=== PATIENT | female | born 1945 | race Caucasian/White ===

== ENCOUNTER 2016-07-24 12:00 | Inpatient (IN) | payer OTHER ==
[2016-08-14] MEDS ORDERED: BACITRACIN 50,000 UNITS/10 ML SYR IRR ONE (08:41)
[2016-08-14] MEDS ORDERED: BUPIVACAINE/EPI 0.25% 30 ML SDV ONE (08:41)
[2016-08-14] MEDS ORDERED: THROMBIN (BOVINE) 5,000 UNIT VIAL TP ONE (08:42)
[2016-08-14] MEDS ORDERED: LR 1,000 ML IV ONE (08:47)
[2016-08-14] MEDS ORDERED: LIDOCAINE 1% 5 ML SDV ID PRN (08:47)
[2016-08-14] MEDS ORDERED: LIDOCAINE 1% 2 ML INJ ONE (08:49)
[2016-08-14] MEDS ORDERED: ceFAZolin 2 GM/DEXTROSE 100 ML IV ONE (09:00)
[2016-08-14] MEDS ORDERED: MIDAZOLAM 2 MG/2 ML VIAL ONE (09:12)
[2016-08-14] MEDS ORDERED: SCOPOLAMINE HYDROBROMIDE 1.5 MG PATCH TD ONE ×2 (09:12→09:30)
[2016-08-14] MEDS ORDERED: PROPOFOL/EMULSION 500 MG/50 ML BOTTLE IV ONE ×2 (09:21→11:31)
[2016-08-14] MEDS ORDERED: fentaNYL 100 MCG/2 ML INJ ONE ×3 (09:21→15:07)
[2016-08-14] MEDS ORDERED: DEXAMETHASONE 4 MG/ML VIAL ONE ×2 (09:30)
[2016-08-14] MEDS ORDERED: ROCURONIUM 50 MG/5 ML VIAL ONE (09:30)
[2016-08-14] MEDS ORDERED: REMIFENTANIL HCL 1 MG VIAL ONE (09:30)
[2016-08-14] MEDS ORDERED: LIDOCAINE 2% 5 ML SDV ONE (09:30)
[2016-08-14] MEDS ORDERED: DEXMEDETOMIDINE HCL 400 MCG in NS 100 ML IV ONE (09:30)
[2016-08-14 09:35] LABS: APTT 22.6 SEC (23.0-38.0); INR 0.99 (0.83-1.16)
[2016-08-14] MEDS ORDERED: DIAZEPAM 10 MG/2 ML SYR IVP PRN (09:41)
[2016-08-14] MEDS ORDERED: BISACODYL 10 MG SUPP PR PRN (09:41)
[2016-08-14] MEDS ORDERED: MAGNESIUM HYDROXIDE 30 ML UDCUP PO PRN (09:41)
[2016-08-14] MEDS ORDERED: LACTULOSE 20 GM/30 ML UDCUP PO PRN (09:41)
[2016-08-14] MEDS ORDERED: diphenhydrAMINE 25 MG CAP PO PRN (09:41)
[2016-08-14] MEDS ORDERED: POLYETHYLENE GLYCOL 3350 17 GM PKT PO PRN (09:41)
[2016-08-14] MEDS ORDERED: ONDANSETRON 4 MG/2 ML VIAL ONE (12:25)
--- NOTE | 2016-08-14 13:31 | GOP ---
[f rep st] OPERATIVE REPORT DATE OF OPERATION: 08/14/2016 SURGEON: Luz Maria Simmons DO NEUROSURGEON: Luz Maria Simmons DO. EDUCATIONAL/DEVELOPMENT ASSISTANT: LLUVIA Wen PREOPERATIVE DIAGNOSIS: Lumbar spondylosis, lumbar stenosis, radiculopathy. POSTOPERATIVE DIAGNOSIS: Lumbar spondylosis, lumbar stenosis, radiculopathy. PROCEDURE PERFORMED: L5-S1 transforaminal lumbar interbody fusion, with Medtronic Solera 4.75 screw s and an 8 x 28 Elevate cage, autograft, allograft, BMP, Stealth stereotaxis. FINDINGS: SPECIMENS: None. ESTIMATED BLOOD LOSS: 100 mL. INDICATIONS: This is a 71-year-old female with severe stenosis, spondylosis, facet arthropathy with radiculopathy bilateral, right greater than left, with MRI consistent with L5-S1 spondylosis and st enosis. It should be noted that she has an S1-2 disk space, and this was noted as L5-S1 from the ra diology report in the 1st fully formed disk space. She was identified, consented, sites were marked . DESCRIPTION OF PROCEDURE: Brought to the operating room, anesthetized under general endotracheal tu be anesthesia, rolled onto the Kedar table. All pressure points were appropriately padded. Incis ion was marked using 18-gauge spinal needle and fluoro, after having prepped and draped in the usual sterile fashion. We opened with a 10 blade and hemostasis obtained with Bovie, bipolar, and Aquama ntys. We placed in cerebellar retractor. We placed a Evelina and verified we were in the appropriat e position. We then dissected around the facet joints of L5-S1 and placed the Pijontronic Litheraacti c frame. Stereotactic spin was performed. We then used a high-speed drill to decorticate and drill out the facet joint on the left side where the TLIF was not going to be occurring. We then used th e Nexmoalth stereotactic awl to create a starting point at S1 on the left, then used power Nutshell to measure and tap a 6.5 x 35 mm screw which was placed stereotactically after verifying the h ole with a ball-tip probe. We then repeated this procedure at L5 on the left with a 6.5 x 50, L5 on the right with a 6.5 x 50, and S1 on the right with a 6.5 x 40 mm screw. All screws stimmed above 20. We performed a stereotactic spin. I did back out half a turn the S1 screw on the right, and th e L4 screw on the left, and removed the L5 screw and stereotactically replaced it using the same pro cedure and the same screw. A repeat spin verified we were in the appropriate position. We then use d a Leksell to remove the spinous process and as much bone as possible. Then using the high-speed d rill, collecting the bone dust, performed a complete laminectomy bilaterally. Opened the ligamentum flavum with a ball-tipped probe to very hypertrophied ligamentum flavum that was removed with 2, 3, and 4 Kerrisons until we had completely removed the facet and pars interarticularis, and completely decompressed the foramina on the right side. This was all done under microscope. We then retracte d the nerve used a nerve root retractor medially, opened the disk space with an 11 blade, using sequ ential rola removed the disk and cartilaginous endplate, prepared the disk space endplates with t he ring curette, and then measured an 8 x 28 mm Elevate cage. We packed BMP and the patient's own b one anteriorly, packed the cage with BMP and the patient's own bone, tamped it into place, and AP an d lateral position was good. It was in excellent position and so deployed the cage until it torqued and took a final x-ray. With it in good position, the microscope was removed. The wound was copio usly irrigated with over a liter of bacitracin-infused saline. BMP was placed into the facet joints that remained, and the patient's own bone was placed out laterally bilaterally. A drain was trocar ed out inferiorly, and the fascia was closed with 0 Vicryl pop-offs, subcutaneous layer with 2-0 Howard ryl pop-offs, cutaneous layer through 3-0 Vicryl pop-offs. The skin was closed with 4-0 running Mon ocryl and Steri-Strips. Dressed with Xeroform, gauze, and Medipore tape. The drain was sutured wit h 2-0 Vicryl pop-off, placed to bulb suction. Neuromonitoring remained stable. There were no compl ications. FLUIDS REPLACED: 1100 mL of crystalloid. URINE OUTPUT: 225. DRAINS: One YAHIR in the subfascial space to bulb suction. COMPLICATIONS: None. /[id number]/MODL
--- NOTE | 2016-08-14 14:05 | POSTOPPROG ---
Post Op Note Date of Operation: 08/14/16 Surgeon: Luz Maria Simmons Associate Producer: Chandrika Samayoa PA-C Anesthesia: GET(General Endotracheal) Pre-op Diagnosis: Lumbar stenosis Post-op Diagnosis: Lumbar stenosis Procedure: L5/S1 transforaminal lumbar interbody fusion Inf/Abcess present in the surg proc area at time of surgery?: No Depth: Deep Incisional (Fascial) EBL: 100-500 Drains: Kedar Fernández Plan Plan: 71 yo female s/p TLIF at L5/S1 - neuro checks - pain control - YAHIR drain x 1 - wear brace when OOB - postop L-spine x-rays pending - PT/OT - SCDs/TEDs, Lovenox to start POD#1 Patient seen in recovery, pain controlled. Awake. Alert PERRL. EOMI Muscle strength full at 5/5 Sensation intact
[2016-08-14] MEDS ORDERED: PROMETHAZINE HCL 25 MG/ML INJ ONE (14:52)
[2016-08-14] MEDS: PROMETHAZINE HCL 25 MG/ML INJ IVP PRN (17:07)
[2016-08-14] MEDS: HYDROmorphONE/DILAUDID 1 MG/ML SYR IVP PRN ×2 (17:14→18:55)
[2016-08-14] MEDS: NS W/ 20 KCl/L 1,000 ML IV SCH (18:12)
[2016-08-14] MEDS: ONDANSETRON DISINTEGRATING 4 MG TAB PO PRN (19:56)
[2016-08-14] MEDS: SENNOSIDES/DOCUSATE SODIUM TAB PO SCH (19:56)
[2016-08-14] MEDS: HYDROmorphONE/DILAUDID 2 MG TAB PO PRN (19:57)
[2016-08-14] MEDS: DIAZEPAM 5 MG TAB PO PRN (23:46)
[2016-08-14] MEDS: ACETAMINOPHEN 325 MG TAB PO PRN (23:50)
[2016-08-15] MEDS: ONDANSETRON DISINTEGRATING 4 MG TAB PO PRN ×3 (03:42→22:25)
[2016-08-15] MEDS: ACETAMINOPHEN 325 MG TAB PO PRN (03:48)
[2016-08-15] MEDS: METHOCARBAMOL 750 MG TAB PO PRN ×2 (03:49→13:18)
[2016-08-15] MEDS: HYDROmorphONE/DILAUDID 2 MG TAB PO PRN ×4 (05:54→20:56)
[2016-08-15] MEDS: NS W/ 20 KCl/L 1,000 ML IV SCH ×2 (05:54→20:56)
[2016-08-15] MEDS: POTASSIUM CL 20 MEQ TAB PO SCH (08:55)
[2016-08-15] MEDS: HYDROCHLOROTHIAZIDE 50 MG TAB PO SCH (08:55)
[2016-08-15] MEDS: SPIRONOLACTONE 50 MG TAB PO SCH (08:55)
[2016-08-15] MEDS: PANTOPRAZOLE SODIUM 40 MG TAB PO SCH (08:56)
[2016-08-15] MEDS: CHOLECALCIFEROL VIT D3 2,000 UNITS TAB/CAP PO SCH (08:56)
[2016-08-15] MEDS: SENNOSIDES/DOCUSATE SODIUM TAB PO SCH ×2 (08:57→20:55)
[2016-08-15] MEDS: DIAZEPAM 5 MG TAB PO PRN ×2 (09:03→20:55)
--- NOTE | 2016-08-15 09:46 | NEUSURGPN ---
Assessment/Plan: 71 yo female s/p TLIF at L5/S1 POD #1 - neuro- Doing well, has expected back pain but managed well with Dilaudid - pain control- Doing well on Dilaudid - YAHIR drain x 1- output 170 since surgery, leave in today - wear brace when OOB- brace to be fit today - postop L-spine x-rays pending today - PT/OT - SCDs/TEDs, Lovenox to start today -Discussed with Dr. Simmons Subjective: Patient has expected back pain worse with movement. Denies leg pain. Has not been up yet with PT. Dilaudid working well for pain control. Objective: NAD, VSS CN II-XII grossly intact BLE /5 Incision c/d/i-dressed YAHIR X1- Serosang output in bulb Catheter Insertion Date: 08/14/16 - Physician Discussed Patient with : [facility] Physical Exam - Vitals, I&O, Labs I and O 08/14/16 08/15/16 08/16/16 05:59 05:59 05:59 Intake Total 1730 Output Total 1445 Balance 285 Intake: Oral (ml) 230 IV Intake (ml) 1300 IV Infused (ml) 200 ceFAZolin 1 GM/DEXTROSE 200 50 ml @ 200 mls/hr IV Q8H [facility] Rx#:[id number] Output: Urine (ml) 1175 Catheter 1175 Estimated Blood Loss (ml) 100 Wound Drainage (ml) 170 Back Kedar Fernández 170 Vital Signs Temp Pulse Resp BP Pulse Ox 36.7 C 66 14 116/62 95 08/15/16 08:00 08/15/16 08:00 08/15/16 08:00 08/15/16 08:00 08/15/16 08:00 ICD10 Worksheet Patient Problems: Problems Problem Status Onset Lumbar stenosis Acute - ICD10 Problem Qualifiers (1) Lumbar stenosis
[2016-08-15] MEDS: ENOXAPARIN 40 MG/0.4 ML SYR SC SCH (13:16)
[2016-08-16] MEDS: METHOCARBAMOL 750 MG TAB PO PRN (04:25)
[2016-08-16] MEDS: HYDROmorphONE/DILAUDID 2 MG TAB PO PRN ×3 (04:25→23:39)
[2016-08-16] MEDS: ONDANSETRON DISINTEGRATING 4 MG TAB PO PRN ×3 (04:25→23:20)
[2016-08-16] MEDS: PROMETHAZINE HCL 25 MG/ML INJ IVP PRN (08:38)
[2016-08-16] MEDS: ENOXAPARIN 40 MG/0.4 ML SYR SC SCH (10:23)
--- NOTE | 2016-08-16 10:31 | NEUSURGPN ---
Assessment/Plan: 71 yo female s/p TLIF at L5/S1 POD #2 - neuro intact - pain control- Doing well on Dilaudid, having some nausea issues. check labs and limit narcotics. - YAHIR drain x 1 DC later today - wear brace when OOB - postop L-spine x-rays pending today - PT/OT - SCDs/TEDs, Lovenox - Dispo: likely DC tomorrow pending clinical course, needs to be tolerating diet and have xrays done prior to DC -Discussed with Dr. Simmons Subjective: Pt resting in bedside chair feels dizzy and nauseous Objective: AAOx3 NAD VSS MAEx4 Motor 5/5 BLE +LT JPx1 in place Urinary Catheter in Place: No Catheter Insertion Date: 08/14/16 - Physician Discussed Patient with : [facility] Physical Exam - Vitals, I&O, Labs I and O 08/15/16 08/16/16 08/17/16 05:59 05:59 05:59 Intake Total 1730 1775 Output Total 1445 1660 Balance 285 115 Intake: Oral (ml) 230 1100 IV Intake (ml) 1300 IV Infused (ml) 200 675 NS W/ 20 KCl/L 1,000 ml @ 675 75 mls/hr IV [facility] Rx #:[id number] ceFAZolin 1 GM/DEXTROSE 200 50 ml @ 200 mls/hr IV Q8H [facility] Rx#:[id number] Output: Urine (ml) 1175 1500 Catheter 1175 Toilet 1500 Estimated Blood Loss (ml) 100 Wound Drainage (ml) 170 160 Back Kedar Fernández 170 160 Other: Number of Voids Toilet 1 Vital Signs Temp Pulse Resp BP Pulse Ox 36.7 C 81 18 111/64 90 L 08/16/16 07:47 08/16/16 07:47 08/16/16 07:47 08/16/16 07:47 08/16/16 07:47 ICD10 Worksheet Patient Problems: Problems Problem Status Onset Lumbar stenosis Acute
[2016-08-16] MEDS: HYDROCHLOROTHIAZIDE 50 MG TAB PO SCH (10:41)
[2016-08-16] MEDS: CHOLECALCIFEROL VIT D3 2,000 UNITS TAB/CAP PO SCH (10:41)
[2016-08-16] MEDS: ESTRADIOL 0.5 MG TAB PO SCH (10:41)
[2016-08-16] MEDS: PANTOPRAZOLE SODIUM 40 MG TAB PO SCH (10:42)
[2016-08-16] MEDS: SPIRONOLACTONE 50 MG TAB PO SCH (10:43)
[2016-08-16] MEDS: SENNOSIDES/DOCUSATE SODIUM TAB PO SCH ×2 (10:43→22:35)
[2016-08-16] MEDS: POTASSIUM CL 20 MEQ TAB PO SCH (10:43)
[2016-08-16 12:36] LABS: HEMATOCRIT 41.6 % (38.0-47.0); HEMOGLOBIN 14.3 g/dL (12.6-16.3); MEAN CELL HEMOGLOBIN CONCENTR. 34.4 g/dL (32.4-36.7); MEAN CELL VOLUME 93.1 fL (81.5-99.8); RED BLOOD CELL COUNT 4.47 10^6/uL (4.18-5.33); RED CELL DISTRIBUTION WIDTH 13.1 % (11.5-15.2)
[2016-08-16 12:55] LABS: ANION GAP 9 mEq/L (8-16); CALCIUM 8.9 mg/dL (8.5-10.4); CARBON DIOXIDE 28 mEq/l (22-31); CHLORIDE 98 mEq/L (97-110); CREATININE 0.8 mg/dL (0.6-1.0); GLOMERULAR FILTRATION RATE > 60; GLUCOSE 135 mg/dL (70-100); POTASSIUM 3.6 mEq/L (3.5-5.2); SODIUM 135 mEq/L (134-144)
[2016-08-17] MEDS: PROMETHAZINE HCL 25 MG/ML INJ IVP PRN (03:26)
[2016-08-17] MEDS: CHOLECALCIFEROL VIT D3 2,000 UNITS TAB/CAP PO SCH (09:27)
[2016-08-17] MEDS: PANTOPRAZOLE SODIUM 40 MG TAB PO SCH (09:28)
[2016-08-17] MEDS: SENNOSIDES/DOCUSATE SODIUM TAB PO SCH ×2 (09:28→23:30)
[2016-08-17] MEDS: ENOXAPARIN 40 MG/0.4 ML SYR SC SCH (09:28)
[2016-08-17] MEDS: ONDANSETRON 4 MG/2 ML VIAL IVP PRN ×2 (09:32→13:40)
[2016-08-17] MEDS: HYDROCHLOROTHIAZIDE 50 MG TAB PO SCH (11:14)
[2016-08-17] MEDS: POTASSIUM CL 20 MEQ TAB PO SCH (11:14)
[2016-08-17] MEDS: SPIRONOLACTONE 50 MG TAB PO SCH (11:14)
--- NOTE | 2016-08-17 12:58 | NEUSURGPN ---
Assessment/Plan: 71 yo female s/p TLIF at L5/S1 POD #3 - neuro intact - pain control- Doing well on Dilaudid, having some nausea issues still. Unable to keep food down at all last night. Will try to give Zofran 1 hr glenna to food, then food prior to pain medicine to help - wear brace when OOB - postop L-spine x-rays show good hardware placement - PT/OT - SCDs/TEDs, Lovenox - Dispo: likely DC tomorrow pending clinical course, needs to be tolerating diet prior to DC -Discussed with Dr. Simmons Subjective: Pt resting in bedside chair feels dizzy and nauseous. Leg pain improved. Voiding well. Denies fever, chills. Objective: AAOx3 NAD VSS MAEx4 Motor 5/5 BLE +LT Catheter Insertion Date: 08/14/16 - Physician Discussed Patient with : [facility] Physical Exam - Vitals, I&O, Labs I and O 08/16/16 08/17/16 08/18/16 05:59 05:59 05:59 Intake Total 1775 700 Output Total 1660 650 Balance 115 50 Intake: Oral (ml) 1100 700 IV Infused (ml) 675 NS W/ 20 KCl/L 1,000 ml @ 675 75 mls/hr IV [facility] Rx #:[id number] Output: Urine (ml) 1500 600 Toilet 1500 600 Wound Drainage (ml) 160 50 Back Kedar Fernández 160 50 Other: Number of Voids Toilet 1 1 Vital Signs Temp Pulse Resp BP Pulse Ox 36.9 C 90 14 124/74 H 91 L 08/17/16 11:43 08/17/16 11:43 08/17/16 11:43 08/17/16 11:43 08/17/16 11:43 Laboratory Results 08/16/16 12:26 08/16/16 12:26 ICD10 Worksheet Patient Problems: Problems Problem Status Onset Lumbar stenosis Acute - ICD10 Problem Qualifiers (1) Lumbar stenosis
[2016-08-17] MEDS: HYDROmorphONE/DILAUDID 2 MG TAB PO PRN (13:40)
[2016-08-17] MEDS: METHOCARBAMOL 750 MG TAB PO PRN ×2 (13:41→23:20)
[2016-08-17] MEDS: PROCHLORPERAZINE MALEATE 5 MG TAB PO PRN ×2 (15:59→23:20)
[2016-08-17 23:57] VITALS: RESP 16
[2016-08-18] MEDS: METHOCARBAMOL 750 MG TAB PO PRN ×3 (04:36→17:27)
[2016-08-18] MEDS: ONDANSETRON DISINTEGRATING 4 MG TAB PO PRN (04:36)
[2016-08-18] MEDS: HYDROmorphONE/DILAUDID 2 MG TAB PO PRN ×3 (05:31→22:13)
[2016-08-18] MEDS: PANTOPRAZOLE SODIUM 40 MG TAB PO SCH (09:49)
[2016-08-18] MEDS: ENOXAPARIN 40 MG/0.4 ML SYR SC SCH (09:50)
[2016-08-18] MEDS: CHOLECALCIFEROL VIT D3 2,000 UNITS TAB/CAP PO SCH (11:25)
[2016-08-18] MEDS: POTASSIUM CL 20 MEQ TAB PO SCH (11:25)
[2016-08-18] MEDS: SPIRONOLACTONE 50 MG TAB PO SCH (11:25)
[2016-08-18] MEDS: SENNOSIDES/DOCUSATE SODIUM TAB PO SCH ×2 (11:25→21:00)
[2016-08-18] MEDS: HYDROCHLOROTHIAZIDE 50 MG TAB PO SCH (11:25)
[2016-08-18] MEDS: PROCHLORPERAZINE MALEATE 5 MG TAB PO PRN ×2 (11:27→21:05)
--- NOTE | 2016-08-18 11:33 | NEUSURGPN ---
Assessment/Plan: 71 yo female s/p TLIF at L5/S1 POD #4 - neuro intact - pain control- Doing better this am with nausea and pain medicine. Has started to eat better as well. - wear brace when OOB - postop L-spine x-rays show good hardware placement - PT/OT - SCDs/TEDs, Lovenox - Dispo: Can go home today if nausea under control and passes therapies. Scripts in chart -Discussed with Dr. Simmons Subjective: Pt resting in bed stating she feels much better this morning in terms of nausea. Leg pain improved. Voiding well. Denies fever, chills. Objective: AAOx3 NAD VSS MAEx4 Motor 5/5 BLE +LT Catheter Insertion Date: 08/14/16 - Physician Discussed Patient with : [facility] Physical Exam - Vitals, I&O, Labs I and O 08/17/16 08/18/16 08/19/16 05:59 05:59 05:59 Intake Total 700 800 Output Total 650 Balance 50 800 Intake: Oral (ml) 700 500 IV Infused (ml) 300 NS W/ 20 KCl/L 1,000 ml @ 300 75 mls/hr IV [facility] Rx #:[id number] Output: Urine (ml) 600 Toilet 600 Wound Drainage (ml) 50 Back Kedar Fernández 50 Other: Number of Voids Toilet 1 2 1 Number of Stools Toilet 1 1 Vital Signs Temp Pulse Resp BP Pulse Ox 36.8 C 80 16 109/72 95 08/18/16 08:17 08/18/16 08:17 08/18/16 08:17 08/18/16 08:17 08/18/16 08:17 Laboratory Results 08/16/16 12:26 08/16/16 12:26 ICD10 Worksheet Patient Problems: Problems Problem Status Onset Lumbar stenosis Acute - ICD10 Problem Qualifiers (1) Lumbar stenosis
[2016-08-18] MEDS: DIAZEPAM 5 MG TAB PO PRN (23:21)
[2016-08-19 11:18] VITALS: BP 114/84; PULSE 79; TEMP 98.2; O2SAT 92
--- NOTE | 2016-08-19 11:19 | GPROG ---
[f rep st] PROGRESS NOTE SUBJECTIVE: No new events overnight. The patient rested fine. The patient did have some issues st ruggling with some pain and nausea over the night. They are giving her nausea medicine prior to any pain medication. OBJECTIVE: VITAL SIGNS: Afebrile, vital signs stable. Pupils equal, round, reactive to light. EO MIs intact. NEUROLOGIC: Cranial nerves 2-12 grossly intact. MOTOR: Movement of all extremities x 4. SKIN: Incision is clean, dry, and intact. No signs or symptoms of infection. ASSESSMENT AND PLAN: The patient is a 71-year-old female who is status post L4-S1 TLIF. She had a YAHIR which was removed. X-rays were done which was reviewed and looked good. We are working on pain control with her. Prescription for Dilaudid was written for her as well. We are also working on so me anti nausea medication to help with her symptoms. We will see how she does this a.m. with plans for possibly leaving on 06/05 in the afternoon. Recommendations for home health care given. All qu estions and concerns were answered. /[id number]/MODL
[2016-08-19] MEDS: ESTRADIOL 0.5 MG TAB PO SCH (11:25)
[2016-08-19] MEDS: CHOLECALCIFEROL VIT D3 2,000 UNITS TAB/CAP PO SCH (11:25)
[2016-08-19] MEDS: ENOXAPARIN 40 MG/0.4 ML SYR SC SCH (11:25)
[2016-08-19] MEDS: SENNOSIDES/DOCUSATE SODIUM TAB PO SCH (11:26)
[2016-08-19] MEDS: POTASSIUM CL 20 MEQ TAB PO SCH (11:26)
[2016-08-19] MEDS: SPIRONOLACTONE 50 MG TAB PO SCH (11:26)
[2016-08-19] MEDS: PANTOPRAZOLE SODIUM 40 MG TAB PO SCH (11:26)
[2016-08-19] MEDS: HYDROCHLOROTHIAZIDE 50 MG TAB PO SCH (11:26)
--- NOTE | 2016-08-19 11:42 | PDIAF ---
- Diagnosis Diagnosis: s/p L4-S1 fusion Code Status: Full Code - Medication Management Discharge Medications: Medications to Continue on Transfer Cholecalciferol Vit D3 [Vitamin D3 (*)] 5,000 units PO DAILY 07/23/16 [Last Taken 08/07/16] Estradiol 0.25 mg PO MWF 07/23/16 [Last Taken 08/13/16] Herbals/Supplements -Info Only 1 ea PO DAILY 07/23/16 [Last Taken 08/07/16] Omeprazole [Prilosec 20 mg] 20 mg PO DAILY 07/23/16 [Last Taken 08/13/16] Potassium Cl [Klor-Con 10 meq (RX)] 20 meq PO DAILY 07/23/16 [Last Taken ] Spironolact/Hydrochlorothiazid [ALDACTAZIDE 25-25 TABLET] 2 each PO DAILY [Last Taken 08/13/16] HYDROmorphone HCL [Dilaudid 2 mg (*)] 2 mg PO Q4HRS PRN #0 tab 08/19/16 [Last Taken Unknown] Hydrochlorothiazide [HCTZ (*)] 50 mg PO DAILY #0 tab 08/19/16 [Last Taken Unknown] Methocarbamol [Robaxin 750 mg (*)] 750 mg PO QID PRN #0 tab 08/19/16 [Last Taken Unknown] Ondansetron Odt [Zofran Odt 4 mg (*)] 4 - 8 mg PO Q6HRS PRN #0 tab 08/19/16 [ Last Taken Unknown] Sennosides/Docusate Sodium [Senokot-S] 1 - 2 tab PO BID #30 tab 08/19/16 [Last Taken Unknown] Chcf Antibiotics: none Discharge Medications: Refer to the Discharge Home Medication list for PRN reason. PICC Care - Routine: N/A - Orders Services needed: Home Care, Physical Therapy, Occupational Therapy Home Care Face to Face: I certify that this patient was under my care and that I had the required [id number] encounter meeting the encounter requirements on the discharge day. My findings support the fact that the patient is homebound as defined in CMS Chapter 7 Medicare Benefits Manual 30.1.1, The condition of the patient is such that there exists a normal inability to leave home and consequently, leaving home would require a considerable and taxing effort. Oxygen: to keep O2 sat more than 90% Diet Recommendation: no restrictions on diet Diet Texture: Regular Texture Diet Tube feeding: none Marte: Not applicable Wound Care Instructions: recheck in 2-3 weeks - Follow Up Care Current Providers and Referrals: ALEC PIZANO [Other] Luz Maria Simmons DO [Doctor of Osteopathy] - (see in 2-3 weeks for a recheck)
[2016-08-19] MEDS: ONDANSETRON DISINTEGRATING 4 MG TAB PO PRN (13:16)
[2016-08-19] MEDS: HYDROmorphONE/DILAUDID 2 MG TAB PO PRN (13:17)
== END 2016-08-19 14:30 | disposition home or self-care (01) | DRG 460 ==
LOC: F2N 08-14 08:19 → F3N 08-14 16:02
PROVIDERS: ADMIT Neurological Surgery; ATTEND Neurological Surgery
PROC: 3E0U0GB Introduction of Recombinant Bone Morphogenetic Protein into Joints, Open Approach (ICD-10-PCS; principal; 2016-08-14 10:00)
PROC: 0SG30AJ Fusion of Lumbosacral Joint with Interbody Fusion Device, Posterior Approach, Anterior Column, Open Approach (ICD-10-PCS; principal; 2016-08-14 10:00)
PROC: 0SG3071 Fusion of Lumbosacral Joint with Autologous Tissue Substitute, Posterior Approach, Posterior Column, Open Approach (ICD-10-PCS; principal; 2016-08-14 10:00)
PROC: 0SB40ZZ Excision of Lumbosacral Disc, Open Approach (ICD-10-PCS; principal; 2016-08-14 10:00)
PROC: 00NY0ZZ Release Lumbar Spinal Cord, Open Approach (ICD-10-PCS; principal; 2016-08-14 10:00)
DX: M47.27 Other spondylosis with radiculopathy, lumbosacral region (principal); M48.06 Spinal stenosis, lumbar region
CPT/HCPCS: 97116-GP; 97161-GP; 97165-GO; 97530-GP; 97535-GO; C1713; G8978-GP-CJ; G8979-GP-CI; G8980-GP-CI; G8987-GO-CI; G8988-GO-CI; G8989-GO-CI; J0690; J1100; J1170; J1650; J2250; J2405; J2550; J2704; J3010